=== PATIENT | female | born 1965 | race Caucasian/White ===

== ENCOUNTER 2023-12-19 17:08 | Emergency (ER) | payer OTHER ==
[~2023-12-19] VITALS: Ht 152.4 cm; Wt 77.1 kg
[2023-12-19 17:14] VITALS: BP 181/90; PULSE 84; RESP 22; TEMP 97.8; O2SAT 98
[2023-12-19 17:52] VITALS: TEMP 97.8
[2023-12-19] MEDS: KETOROLAC 30 MG/ML VIAL IM ONE (18:33)
[2023-12-19] MEDS: ACETAMINOPHEN EXTRA STRENGTH 500 MG TAB PO ONE (18:34)
[2023-12-19 19:17] VITALS: BP 160/88; PULSE 71; RESP 17; O2SAT 98
== END 2023-12-19 19:17 | disposition home or self-care (01) ==
LOC: MED 17:08
DX: M25.551 Pain in right hip (principal); W18.39XA Other fall on same level, initial encounter; Y92.89 Other specified places as the place of occurrence of the external cause; Y93.89 Activity, other specified; Y99.8 Other external cause status
CPT/HCPCS: 73502; 96372; 99283; J1885; Q0092